=== PATIENT | female | born 1970 | race Caucasian/White ===

== ENCOUNTER 2019-04-10 10:47 | Outpatient (REF) | payer BC, SELFPAY ==
[2019-04-10 22:53] LABS: Anion Gap 12.1 mmol/L (3-11); BUN 16 mg/dL (7-18); CO2 26.9 mmol/L (21.0-32.0); CREATININE 1.08 mg/dL (0.55-1.02); Calcium 9.5 mg/dL (8.5-10.1); Calculated LDL 143 mg/dL; Chloride 102 mmol/L (98-107); Cholesterol 219 mg/dL (<200); Estimated GFR 54.38 (mL/min/1.73m2); Glucose 89 mg/dL (74-106); HDL Cholesterol 39 mg/dL (40-60); Potassium 4.1 mmol/L (3.5-5.1); Sodium 141 mmol/L (136-145); Triglyceride 188 mg/dL (<150)
== END 2019-04-10 11:07 ==
LOC: NCHCN 10:47
PROVIDERS: PCP Nurse Practitioner Family; Visit Provider Registered Nurse
DX: R03.0 Elevated blood-pressure reading, without diagnosis of hypertension (principal); Z13.220 Encounter for screening for lipoid disorders
CPT/HCPCS: 80048; 80061

== ENCOUNTER 2019-04-10 11:08 | Outpatient (REF) | payer BC, SELFPAY ==
--- NOTE | 2019-04-10 09:00 | PAPFT_PTH ---
PATIENT: Sandra Bush LOC: [facility] U#:[id number] AGE/SX: 49/F ROOM: RE04/10/[address]: Pat Benavides : 1970 BED: DIS: 04/10/2019 SPEC #: [id number] RECD: 04/11/19 12:36 STATUS: SANDI REQ #: [id number] MICHAEL: 04/10/19 09:[address]: Pat Benavides DEPT: [facility] Cytology RECD BY: Anne Colon ENTERED: 04/11/19 12:36 SP TYPE: PAPFT OTHR DR: Elsy Chakraborty Tissues: 1 - CX/ENDOCX FOR PAP SMEARS Procedures: PAP THIN PREP/[facility] Screening HPV DNA PROBE Comments: [id number]
== END 2019-04-10 11:28 ==
LOC: NCHCN 11:08
PROVIDERS: PCP Nurse Practitioner Family; Visit Provider Registered Nurse
DX: Z12.4 Encounter for screening for malignant neoplasm of cervix (principal)
CPT/HCPCS: 88142; 87624

== ENCOUNTER 2019-04-24 10:01 | Outpatient (REF) | payer BC, SELFPAY ==
[2019-04-24 21:59] LABS: Anion Gap 10.4 mmol/L (3-11); BUN 16 mg/dL (7-18); CO2 26.6 mmol/L (21.0-32.0); CREATININE 0.96 mg/dL (0.55-1.02); Calcium 9.8 mg/dL (8.5-10.1); Chloride 101 mmol/L (98-107); Glucose 83 mg/dL (74-106); Potassium 4.2 mmol/L (3.5-5.1); Sodium 138 mmol/L (136-145)
== END 2019-04-24 10:21 ==
LOC: NCHCN 10:01
PROVIDERS: PCP Nurse Practitioner Family; Visit Provider Registered Nurse
DX: R03.0 Elevated blood-pressure reading, without diagnosis of hypertension (principal)
CPT/HCPCS: 80048

== ENCOUNTER 2019-05-15 09:36 | Outpatient (REF) | payer BC, SELFPAY ==
[2019-05-15 21:46] LABS: Anion Gap 9.3 mmol/L (3-11); BUN 17 mg/dL (7-18); CO2 31.7 mmol/L (21.0-32.0); CREATININE 1.14 mg/dL (0.55-1.02); Calcium 9.6 mg/dL (8.5-10.1); Chloride 99 mmol/L (98-107); Estimated GFR 51.09 (mL/min/1.73m2); Glucose 89 mg/dL (74-106); Potassium 3.4 mmol/L (3.5-5.1); Sodium 140 mmol/L (136-145)
== END 2019-05-15 09:56 ==
LOC: NCHCN 09:36
PROVIDERS: PCP Nurse Practitioner Family; Visit Provider Registered Nurse
DX: I10 Essential (primary) hypertension (principal)
CPT/HCPCS: 80048

== ENCOUNTER 2020-07-03 09:38 | Outpatient (REF) | payer BC, SELFPAY ==
[2020-07-03 13:48] LABS: Anion Gap 5.7 mmol/L (3-11); BUN 19 mg/dL (7-18); CO2 31.3 mmol/L (21.0-32.0); CREATININE 1.1 mg/dL (0.55-1.02); Calcium 9.6 mg/dL (8.5-10.1); Chloride 99 mmol/L (98-107); Estimated GFR 53.01 (mL/min/1.73m2); Glucose 106 mg/dL (74-106); Potassium 3.1 mmol/L (3.5-5.1); Sodium 136 mmol/L (136-145)
== END 2020-07-03 09:39 | disposition home or self-care (01) ==
LOC: NCHCN 09:38
PROVIDERS: PCP Nurse Practitioner Family; Visit Provider Registered Nurse
DX: I10 Essential (primary) hypertension (principal)
CPT/HCPCS: 80048

== ENCOUNTER 2020-07-28 15:34 | Outpatient (REF) | payer BC, SELFPAY ==
[2020-07-28 16:57] LABS: BUN 18 mg/dL (7-18); Estimated GFR 59.18 (mL/min/1.73m2); Potassium 3.6 mmol/L (3.5-5.1)
== END 2020-07-28 15:35 | disposition home or self-care (01) ==
LOC: NCHCN 15:34
PROVIDERS: PCP Nurse Practitioner Family; Visit Provider Registered Nurse
DX: I10 Essential (primary) hypertension (principal); F32.9 Major depressive disorder, single episode, unspecified
CPT/HCPCS: 84520; 82565; 84132

== ENCOUNTER 2021-06-16 09:14 | Outpatient (REF) | payer MEDICAID, SELFPAY ==
[2021-06-16 15:01] LABS: Anion Gap 7.2 mmol/L (3-11); BUN 16 mg/dL (7-18); CO2 28.8 mmol/L (21.0-32.0); Calcium 9.7 mg/dL (8.5-10.1); Calculated LDL 129 mg/dL (<100); Chloride 100 mmol/L (98-107); Cholesterol 210 mg/dL (<200); Estimated GFR 58.93 (mL/min/1.73m2); Glucose 88 mg/dL (74-106); HDL Cholesterol 43 mg/dL (40-60); Potassium 3.7 mmol/L (3.5-5.1); Sodium 136 mmol/L (136-145); Triglyceride 194 mg/dL (<150)
== END 2021-06-16 09:15 | disposition home or self-care (01) ==
LOC: NCHCN 09:14
PROVIDERS: PCP Registered Nurse; Visit Provider Registered Nurse
DX: I10 Essential (primary) hypertension (principal); Z13.220 Encounter for screening for lipoid disorders
CPT/HCPCS: 80048; 80061

== ENCOUNTER 2021-12-15 09:24 | Outpatient (REF) | payer MEDICAID, SELFPAY ==
[2021-12-15 16:02] LABS: TSH 1.53 uIU/mL (0.36-3.74)
[2021-12-15 16:18] LABS: Abs Immature Grans 0.08 10^3/uL (0.0-0.06); Absolute Eosinophil Count 0.43 10^3/uL (0.0-0.7); Absolute Lymphocyte Count 3.02 10^3/uL (1.2-3.4); Absolute Monocyte Count 1.35 10^3/uL (0.1-0.8); Absolute Neutrophil Count 7.29 10^3/uL (1.2-6.7); Basophils % 0.8; Eosinophils % 3.5; HGB 13.2 g/dL (11.2-15.7); Immature Grans % 0.7; Lymphocytes % 24.6; MCH 29.2 pg (27.0-33.0); MCHC 33.8 % (32.0-36.0); MCV 86 fL (80-95); Neutrophils % 59.4; RBC 4.52 10^6/uL (3.93-5.22); RDW-SD 40.5 fL; WBC 12.27 10^3/uL (4.4-10.8)
[2021-12-15 17:07] LABS: Diff Comment PLT Morph Reviewed; RBC Morphology Normal
== END 2021-12-15 09:25 | disposition home or self-care (01) ==
LOC: NCHCN 09:24
PROVIDERS: PCP Registered Nurse; Visit Provider Registered Nurse
DX: I10 Essential (primary) hypertension (principal); R53.83 Other fatigue; E66.01 Morbid (severe) obesity due to excess calories
CPT/HCPCS: 84443; 85025

== ENCOUNTER 2021-12-22 09:09 | Outpatient (REF) | payer MEDICAID, SELFPAY ==
[2021-12-22 16:10] LABS: Abs Immature Grans 0.08 10^3/uL (0.0-0.06); Absolute Basophil Count 0.11 10^3/uL (0.0-0.2); Absolute Eosinophil Count 0.46 10^3/uL (0.0-0.7); Absolute Lymphocyte Count 3.23 10^3/uL (1.2-3.4); Basophils % 0.8; Eosinophils % 3.4; HCT 37.5 % (36.0-46.0); HGB 12.6 g/dL (11.2-15.7); Immature Grans % 0.6; MCH 29.4 pg (27.0-33.0); MCHC 33.6 % (32.0-36.0); MCV 87 fL (80-95); Monocytes % 8.9; Neutrophils % 62.3; Platelet Count 375 10^3/uL (130-400); RBC 4.29 10^6/uL (3.93-5.22); RDW 13.2 % (11.7-14.6); RDW-SD 42.1 fL; WBC 13.44 10^3/uL (4.4-10.8)
[2021-12-22 16:18] LABS: Absolute Neutrophil Count 8.37 10^3/uL (1.2-6.7)
== END 2021-12-22 09:10 | disposition home or self-care (01) ==
LOC: NCHCN 09:09
PROVIDERS: PCP Registered Nurse; Visit Provider Registered Nurse
DX: R53.83 Other fatigue (principal)
CPT/HCPCS: 85025

== ENCOUNTER 2022-12-30 13:59 | Outpatient (REF) | payer MEDICAID, SELFPAY ==
[2022-12-30 14:51] LABS: Hemoglobin A1C 5.5 % (<5.7)
[2022-12-30 14:54] LABS: Anion Gap 10.5 mmol/L (3-11); BUN 22 mg/dL (7-18); CO2 28.5 mmol/L (21.0-32.0); CREATININE 1.2 mg/dL (0.55-1.02); Calcium 10.5 mg/dL (8.5-10.1); Calculated LDL 170 mg/dL (<100); Chloride 97 mmol/L (98-107); Cholesterol 251 mg/dL (<200); Estimated GFR 55.15 (mL/min/1.73m2); Glucose 109 mg/dL (74-106); HDL Cholesterol 48 mg/dL (40-60); Potassium 3.3 mmol/L (3.5-5.1); Sodium 136 mmol/L (136-145); Triglyceride 166 mg/dL (<150)
== END 2022-12-30 14:00 | disposition home or self-care (01) ==
LOC: NCHCN 13:59
PROVIDERS: PCP Registered Nurse; Visit Provider Nurse Practitioner Family
DX: I10 Essential (primary) hypertension (principal); E66.01 Morbid (severe) obesity due to excess calories; Z13.220 Encounter for screening for lipoid disorders; Z13.1 Encounter for screening for diabetes mellitus; R79.89 Other specified abnormal findings of blood chemistry
CPT/HCPCS: 80048; 80061; 83036

== ENCOUNTER 2023-01-10 16:27 | Outpatient (REF) | payer MEDICAID, SELFPAY ==
[2023-01-10 15:13] LABS: Anion Gap 8.7 mmol/L (3-11); BUN 21 mg/dL (7-18); CO2 29.3 mmol/L (21.0-32.0); CREATININE 1.1 mg/dL (0.55-1.02); Calcium 10.2 mg/dL (8.5-10.1); Chloride 101 mmol/L (98-107); Estimated GFR 61.22 (mL/min/1.73m2); Glucose 99 mg/dL (74-106); Potassium 3.6 mmol/L (3.5-5.1); Sodium 139 mmol/L (136-145)
--- OUTSIDE RECORDS SUMMARY | 2023-01-10 16:29 | XMS_ITS | CCD ---
Author Name Unknown Address [address] [place] [id number] Organization Unknown Address [address], [place] [id number] Care Team Providers Care Potato Sorter Name Role Phone RENE MEYERS Attending Physician [phone] Vital Signs Unknown or Not Available. Allergies Unknown or Not Available. Procedures Unknown or Not Available. History of Immunizations Unknown or Not Available. Problems Unknown or Not Available. Results Unknown or Not Available. Active Medications Unknown or Not Available. Medications Administered During Visit Unknown or Not Available. Encounters Encounter Diagnosis Diagnosis Code Start Date Brachial plexus disorder [id number] Social History Smoking Status Code Start Date End Date Former smoker [id number] 04/03/1991 Patient Decision Aids Unknown or Not Available. Discharge Instructions You were admitted to [facility] on 06/06/2022 10:30 with a principal diagnosis of Brachial plexus disorders You were discharged from [facility] on 06/06/2022 10:30 Should you have any questions prior to discharge, please contact a member of your healthcare team. If you have left the hospital and have any questions, please contact your primary care physician. Chief Complaint and Reason For Visit Unknown or Not Available. Function Status Unknown or Not Available. Plan of Care Unknown or Not Available. Referral/Transition of Care Unknown or Not Available.
--- OUTSIDE RECORDS SUMMARY | 2023-01-10 16:29 | XMS_ITS | CCD ---
Author Name Unknown Address [address] [place] [id number] Organization Unknown Address [address], [place] [id number] Care Team Providers Care Fashion Model Name Role Phone RENE MEYERS Attending Physician [phone] RENE MEYERS Rounding (Secondary) Physician [phone] Vital Signs Unknown or Not Available. Allergies Unknown or Not Available. Procedures Unknown or Not Available. History of Immunizations Unknown or Not Available. Problems Unknown or Not Available. Results Unknown or Not Available. Active Medications Unknown or Not Available. Medications Administered During Visit Unknown or Not Available. Encounters Encounter Diagnosis Diagnosis Code Start Date Brachial plexus disorders [id number] Social History Smoking Status Code Start Date End Date Former smoker [id number] 04/03/1991 Patient Decision Aids Unknown or Not Available. Discharge Instructions You were admitted to [facility] on 02/18/2022 13:21 with a principal diagnosis of Brachial plexus disorders You were discharged from [facility] on 02/18/2022 00:00 Should you have any questions prior to [...]
== END 2023-01-10 16:28 | disposition home or self-care (01) ==
LOC: NCHCN 16:27
PROVIDERS: PCP Registered Nurse; Visit Provider Nurse Practitioner Family
DX: I10 Essential (primary) hypertension (principal)
CPT/HCPCS: 80048

== ENCOUNTER 2023-04-17 09:52 | Outpatient (REF) | payer MEDICAID, SELFPAY ==
[2023-04-17 10:25] LABS: Bilirubin Negative (Negative); Blood Small (Negative); Clarity Sl Cloudy (Clear); Glucose Negative (Negative); Ketones Negative (Negative); Leukocyte Esterase Large (Negative); Nitrite Negative (Negative); Urobilinogen 0.2 mg/dL (Up to 0.2); pH 6.5 (5-8)
[2023-04-17 10:36] LABS: RBC 0-2 HPF (0-2); WBC >50 HPF (0-5)
[2023-04-17 10:37] LABS: Bacteria Moderate HPF (Negative); Epithelial Cells Rare HPF (Negative)
[2023-04-17 10:38] LABS: C & S Indicated? C&S Done As Ordered; Crystals Negative HPF (Negative); Mucus Trace (Negative)
== END 2023-04-17 09:53 | disposition home or self-care (01) ==
LOC: LBN 09:52
PROVIDERS: PCP Registered Nurse; Visit Provider Nurse Practitioner Gerontology
DX: N20.0 Calculus of kidney (principal); R82.998 Other abnormal findings in urine
CPT/HCPCS: 87077; 81003; 81015; 87086; 87186

== ENCOUNTER → 2023-04-27 02:07 | Outpatient (CLI) | payer MEDICAID, SELFPAY ==
--- NOTE | 2023-04-27 07:30 | DI.US_ITS ---
Exam(s) US RENAL EXAM: US RENAL CLINICAL HISTORY: monitoring renal calculi,recurrent kidney stones,n20.0. TECHNIQUE: Estrada scale, color and spectral Doppler were used. COMPARISON: CT,DOC CT RENAL COLIC from 11/05/2017 FINDINGS: Renal size in cm: Right: 10.9. Left: 12.3. Echogenicity: Normal. Hydronephrosis: Please see below under nephrolithiasis. Cyst or mass: No. Nephrolithiasis: There is a large echogenic focus seen in the right renal pelvis it measures at least 3.9 cm. It has branching aspects to it suspicious for staghorn calculus. There are anechoic branch ing areas seen particularly in the superior pole suspicious for hydronephrosis. On the left there ar e echogenic foci seen within the renal pelvis consistent with nonobstructing stones. The largest alejandra sures 6 mm. Other findings: None. Bladder:Normal. Ureteral jets: Right: Visualized and unremarkable. Left: Visualized and unremarkable. Prevoid vol:169 cc Postvoid vol:0 cc Renal color flow: Symmetric and within normal limits. IMPRESSION: 1. Echogenic focus in the right renal pelvis consistent with nephrolithiasis. The findings are sugge stive of a staghorn calculus. CT scan may be obtained for further evaluation. 2. Branching anechoic areas particularly in the upper pole of the right kidney suspicious for obstruc tion. 3. Left nephrolithiasis. No obstructive uropathy. DATA REPOSITORY:
== END ==
PROVIDERS: PCP Registered Nurse; Visit Provider Nurse Practitioner Gerontology
DX: N20.0 Calculus of kidney (principal)
CPT/HCPCS: 76770

== ENCOUNTER 2024-04-15 15:42 | Outpatient (REF) | payer MEDICAID, SELFPAY | END 2024-04-15 15:43 | disposition home or self-care (01) | LOC: LBN 15:42 | PROVIDERS: PCP Registered Nurse; Visit Provider Nurse Practitioner Gerontology | DX: N20.0 Calculus of kidney (principal); R10.2 Pelvic and perineal pain | CPT/HCPCS: 87086 ==

== ENCOUNTER 2024-04-23 01:33 | Outpatient (CLI) | payer MEDICAID, SELFPAY ==
--- NOTE | 2024-04-23 07:15 | DI.US_ITS ---
Exam(s) US RENAL EXAM: US RENAL CLINICAL HISTORY: monitoring stone to right,staghorn calculus,n20.0. TECHNIQUE: Estrada scale, color and spectral Doppler were used. COMPARISON: CT,DOC CT RENAL COLIC from 11/05/2017 US US RENAL from 04/27/2023 FINDINGS: Right kidney: 10.5cm Echogenicity: Normal Hydronephrosis: Upper pole hydronephrosis again noted. Cyst or mass: No Nephrolithiasis: Large staghorn calculus again noted in the mid to lower pole which measures roughly 4.2 x 3.2 x 4.2 cm. Left kidney: 11.9cm Echogenicity: Normal Hydronephrosis: No Cyst or mass: No Nephrolithiasis: 1.1 centimeter stone at the lower pole Bladder:Normal. Both ureteral jets were visualized. Prevoid vol:104 cc Postvoid vol:0 cc IMPRESSION: Stable appearance of large right staghorn calculus causing upper pole hydronephrosis. 1.1 centimeter stone lower pole left kidney. No left hydronephrosis. DATA REPOSITORY:
== END 2024-04-23 01:53 ==
LOC: DI 01:33
PROVIDERS: PCP Registered Nurse; Visit Provider Nurse Practitioner Gerontology
DX: N20.0 Calculus of kidney (principal)
CPT/HCPCS: 76770

== ENCOUNTER 2024-04-23 15:38 | Outpatient (CLI) | payer MEDICAID, SELFPAY ==
[2024-04-23 13:45] LABS: BUN 24 mg/dL (7-18); CREATININE 1.2 mg/dL (0.55-1.02); Estimated GFR 54.46 (mL/min/1.73m2)
== END 2024-04-23 15:39 | disposition home or self-care (01) ==
LOC: LBO 15:38
PROVIDERS: PCP Registered Nurse; Visit Provider Nurse Practitioner Gerontology
DX: N20.0 Calculus of kidney (principal)
CPT/HCPCS: 36415; 84520; 82565

== ENCOUNTER 2024-09-26 09:38 | Outpatient (REF) | payer MEDICAID, SELFPAY ==
[2024-09-26 15:33] LABS: ALT 35 U/L (14-59); AST 26 U/L (15-37); Albumin 4.1 g/dL (3.4-5.0); Alkaline Phosphatase 97 U/L (46-116); Anion Gap 6.4 mmol/L (3-11); BUN 20 mg/dL (7-18); Bilirubin, Total 0.4 mg/dL (0.2-1.0); CO2 32.6 mmol/L (21.0-32.0); CREATININE 1.2 mg/dL (0.55-1.02); Calcium 9.7 mg/dL (8.5-10.1); Calculated LDL 135 mg/dL (<100); Chloride 101 mmol/L (98-107); Cholesterol 216 mg/dL (<200); Estimated GFR 54.46 (mL/min/1.73m2); Glucose 94 mg/dL (74-106); HDL Cholesterol 45 mg/dL (>or=50); Potassium 3.4 mmol/L (3.5-5.1); Sodium 140 mmol/L (136-145); Total Protein 8.1 g/dL (6.4-8.2); Triglyceride 184 mg/dL (<150)
[2024-09-26 15:36] LABS: Hemoglobin A1C 5.7 % (<5.7)
== END 2024-09-26 09:39 | disposition home or self-care (01) ==
LOC: NCHCN 09:38
PROVIDERS: PCP Nurse Practitioner Family; Visit Provider Nurse Practitioner Family
DX: Z00.00 Encounter for general adult medical examination without abnormal findings (principal); I10 Essential (primary) hypertension; Z13.220 Encounter for screening for lipoid disorders
CPT/HCPCS: 80053; 80061; 83036

== ENCOUNTER 2024-12-03 11:39 | Outpatient (CLI) | payer MEDICAID, SELFPAY ==
--- NOTE | 2024-12-03 | DI.US_ITS ---
Exam(s) US RENAL EXAM: US RENAL CLINICAL HISTORY: Monitoring size of stones,n20.0,staghorn calculus. TECHNIQUE: Estrada scale imaging and color doppler were used. COMPARISON: CT,DOC CT RENAL COLIC from 11/05/2017 US US RENAL from 04/27/2023 US US RENAL from 04/23/2024 FINDINGS: Right kidney: 12.0cm Echogenicity: Normal Hydronephrosis: Moderate dilatation calyces. Cyst or mass: No Nephrolithiasis: Staghorn calculus in renal pelvis. Multiple other calcifications noted at lower pole of the right kidney. Left kidney: 12.8cm Echogenicity: Normal Hydronephrosis: No Cyst or mass: No Nephrolithiasis: 6 millimeter stone at lower pole. Bladder:Normal. Both ureteral jets were visualized Prevoid vol:236 cc Postvoid vol:2 cc IMPRESSION: Staghorn calculus in the renal pelvis causing [id number] caliceal dilatation. 6 millimeter nonobstructing stone the lower pole of the left kidney. DATA REPOSITORY:
== END 2024-12-03 11:59 ==
PROVIDERS: PCP Nurse Practitioner Family; Visit Provider Nurse Practitioner Gerontology
DX: N20.0 Calculus of kidney (principal)
CPT/HCPCS: 76770